=== PATIENT | male | born 1935 | race Caucasian/White ===

== ENCOUNTER → 2017-01-15 | Outpatient (CLI) | payer MEDICARE, BC ==
[2012-10-06 02:00] VITALS: BP 176/84
[~2017-01-15] MED LIST: CATAPRES PO; FLOMAX PO; ITRACONAZOLE100 MG PO; LEVAQUIN 5500 MG/TA1 PO; LEVITRA20 MG PO; LISINOPRIL AND1 TAB PO; OXYCONTIN 10MG10 MG PO; PREDNISONE10 M1 PO; PRILOSEC 20MG20 MG PO; RT SPIRIVA INH18 MCG IH; ST. JOSEPH81 M2 PO; ZESTRIL 20MG TA20 MG PO
== END ==
LOC: LAB 09:49
DX: I10 Essential (primary) hypertension (principal); Z12.5 Encounter for screening for malignant neoplasm of prostate; N40.0 Benign prostatic hyperplasia without lower urinary tract symptoms

== ENCOUNTER → 2017-06-19 | Outpatient (CLI) | payer MEDICARE, BC ==
[2012-10-06 02:00] VITALS: BP 176/84
== END ==
LOC: LAB 09:19
DX: R97.20 Elevated prostate specific antigen [PSA] (principal)

== ENCOUNTER → 2018-01-15 | Outpatient (CLI) | payer MEDICARE, BC ==
[2012-10-06 02:00] VITALS: BP 176/84
== END ==
LOC: LAB 13:47
DX: L03.90 Cellulitis, unspecified (principal); B99.9 Unspecified infectious disease; M79.674 Pain in right toe(s)

== ENCOUNTER → 2018-03-23 | Outpatient (CLI) | payer MEDICARE, BC ==
[~2018-03-23] VITALS: Ht 172.7 cm; Wt 67.7 kg
[~2018-03-23] MED LIST changes: +ADULT ASPIRIN81 MG PO; +FLOMAX0.4 MG PO
[2018-03-23 11:31] LABS: EOS # 0.2 (0.04-0.40); EOS % 2.3 % (0.0-4.0); HEMATOCRIT 44.7 % (42.0-52.0); HEMOGLOBIN 15.3 g/dL (13.5-18.0); LYMPH# 1.7 (1.50-4.00); MEAN CELL VOLUME 95 fl (78-100); MEAN CORPUSCULAR HEMOGLOBIN 33 pg (27-31); MEAN CORPUSCULAR HGB CONC 34 g/dL (33-37); MEAN PLATELET VOLUME 9.9 fl (7.4-10.4); MONO # 0.7 (0.20-0.80); NEU # 6.1 (1.40-6.50); PLATELET COUNT 227 K/mm3 (130-400); RED CELL DISTRIBUTION WIDTH 14.2 % (11.5-14.5); WHITE BLOOD COUNT 8.8 K/mm3 (4.8-10.8)
[2018-03-23 11:38] LABS: ALBUMIN 4.4 g/dL (3.5-5.0); CALCIUM 9.6 mg/dL (8.4-10.2); POTASSIUM 4.3 mmol/L (3.6-5.0); TOTAL BILIRUBIN 0.8 mg/dL (0.2-1.3); TOTAL PROTEIN 7.3 g/dL (6.3-8.2)
[2018-03-23 11:58] LABS: TROPONIN-I 0.08 ng/mL (0.00-0.06)
[2018-03-23 12:20] VITALS: BP 205/109
== END ==
LOC: AMSURD 11:14
PROVIDERS: Physician Assistant
DX: R91.8 Other nonspecific abnormal finding of lung field (principal); R07.9 Chest pain, unspecified; R06.01 Orthopnea; R06.00 Dyspnea, unspecified

== ENCOUNTER → 2018-06-15 | Outpatient (CLI) | payer MEDICARE, BC ==
[2018-03-23 12:20] VITALS: BP 205/109
== END ==
LOC: LAB 10:46
DX: Z12.5 Encounter for screening for malignant neoplasm of prostate (principal); I10 Essential (primary) hypertension; N40.0 Benign prostatic hyperplasia without lower urinary tract symptoms; R97.20 Elevated prostate specific antigen [PSA]

== ENCOUNTER → 2019-01-13 | Outpatient (CLI) | payer MEDICARE, BC ==
[2018-03-23 12:20] VITALS: BP 205/109
== END ==
LOC: LAB 14:52
PROVIDERS: Urology
DX: R97.20 Elevated prostate specific antigen [PSA] (principal)

== ENCOUNTER 2019-06-03 14:21 | Emergency (ER) | payer MEDICARE, BC ==
[~2019-06-03] VITALS: Ht 172.7 cm; Wt 65.9 kg
[2019-06-03 14:57] LABS: BASO # 0.1 (0.02-0.10); EOS # 0.1 (0.04-0.40); EOS % 1.4 % (0.0-4.0); HEMATOCRIT 40.8 % (42.0-52.0); HEMOGLOBIN 13.4 g/dL (13.5-18.0); LYMPH# 1.7 (1.50-4.00); MEAN CELL VOLUME 96 fl (78-100); MEAN CORPUSCULAR HEMOGLOBIN 32 pg (27-31); MEAN CORPUSCULAR HGB CONC 33 g/dL (33-37); MEAN PLATELET VOLUME 10.5 fl (7.4-10.4); MONO # 0.7 (0.20-0.80); NEU # 5.6 (1.40-6.50); PLATELET COUNT 89 K/mm3 (130-400); RED BLOOD COUNT 4.24 M/mm3 (4.20-5.60); RED CELL DISTRIBUTION WIDTH 14.1 % (11.5-14.5); WHITE BLOOD COUNT 8.1 K/mm3 (4.8-10.8)
[2019-06-03 15:10] LABS: ALBUMIN 3.9 g/dL (3.4-4.8); POTASSIUM 4.2 mmol/L (3.5-5.1); SODIUM 141 mmol/L (136-145)
[2019-06-03 15:11] LABS: CALCIUM 9.2 mg/dL (8.3-10.5)
[2019-06-03 15:12] LABS: GLUCOSE 121 mg/dL (75-110)
[2019-06-03 15:13] LABS: TOTAL PROTEIN 6.1 g/dL (6.2-8.1)
[2019-06-03 15:14] LABS: CARBON DIOXIDE 19 mmol/L (23-31); TOTAL BILIRUBIN 0.7 mg/dL (0.2-1.2)
[2019-06-03 15:18] LABS: AST-SGOT 14 U/L (5-34)
[2019-06-03 15:19] LABS: ALT/SGPT 15 U/L (0-55)
[2019-06-03 15:27] LABS: TROPONIN-I < 0.03 ng/mL (<0.030)
[2019-06-03] MEDS ORDERED: MUPIROCIN CALCIUM2% TP (15:58)
[2019-06-03 17:47] LABS: URINE APPEARANCE CLEAR; URINE BILIRUBIN NEGATIVE (NEGATIVE); URINE COLOR YELLOW; URINE GLUCOSE NEGATIVE (NEGATIVE); URINE KETONE NEGATIVE (NEGATIVE); URINE NITRATE NEGATIVE (NEGATIVE); URINE PROTEIN(semi-quant) 2+ mg/dL (NEGATIVE); URINE UROBILINOGEN NORMAL (NORMAL)
[2019-06-03 17:48] LABS: URINE BLOOD TRACE (NEGATIVE); URINE LEUKOCYTE ESTERASE TRACE (NEGATIVE); URINE MUCUS PRESENT (NOT PRESENT)
[2019-06-03 19:55] VITALS: BP 189/67
== END 2019-06-03 19:55 | disposition home or self-care (01) ==
LOC: ED 14:21
PROVIDERS: Nurse Practitioner Primary Care
DX: I44.2 Atrioventricular block, complete (principal); N40.0 Benign prostatic hyperplasia without lower urinary tract symptoms; Z79.82 Long term (current) use of aspirin; Z87.891 Personal history of nicotine dependence
CPT/HCPCS: J7030

== ENCOUNTER 2019-06-07 08:54 | Emergency (ER) | payer MEDICARE, BC ==
[~2019-06-07] VITALS: Ht 172.7 cm; Wt 71.0 kg
[~2019-06-07 08:54] MED LIST changes: +MUPIROCIN CALCIUM2% TP
[2019-06-07 09:53] LABS: EOS # 0.1 (0.04-0.40); EOS % 1.3 % (0.0-4.0); HEMATOCRIT 40.8 % (42.0-52.0); HEMOGLOBIN 13.6 g/dL (13.5-18.0); LYMPH# 1.4 (1.50-4.00); MEAN CELL VOLUME 96 fl (78-100); MEAN CORPUSCULAR HEMOGLOBIN 32 pg (27-31); MEAN CORPUSCULAR HGB CONC 33 g/dL (33-37); MEAN PLATELET VOLUME 11.1 fl (7.4-10.4); NEU # 8.2 (1.40-6.50); PLATELET COUNT 196 K/mm3 (130-400); RED BLOOD COUNT 4.25 M/mm3 (4.20-5.60); WHITE BLOOD COUNT 10.8 K/mm3 (4.8-10.8)
[2019-06-07 09:54] LABS: ALBUMIN 4.1 g/dL (3.4-4.8); POTASSIUM 4.4 mmol/L (3.5-5.1)
[2019-06-07 09:57] LABS: TOTAL PROTEIN 6.8 g/dL (6.2-8.1)
[2019-06-07 09:58] LABS: TOTAL BILIRUBIN 0.8 mg/dL (0.2-1.2)
[2019-06-07 10:09] LABS: TROPONIN-I 0.06 ng/mL (<0.030)
[2019-06-07 11:00] VITALS: BP 192/79
== END 2019-06-07 11:10 | disposition short-term general hospital (02) ==
LOC: ED 08:54
PROVIDERS: Nurse Practitioner Primary Care
DX: I50.9 Heart failure, unspecified (principal); I44.2 Atrioventricular block, complete; R79.89 Other specified abnormal findings of blood chemistry; F17.210 Nicotine dependence, cigarettes, uncomplicated; Z79.82 Long term (current) use of aspirin
CPT/HCPCS: J1940

== ENCOUNTER → 2019-06-15 | Outpatient (CLI) | payer MEDICARE, BC ==
[2019-06-07 11:00] VITALS: BP 192/79
== END ==
LOC: RAD 11:09
DX: J90 Pleural effusion, not elsewhere classified (principal); J18.8 Other pneumonia, unspecified organism; J44.9 Chronic obstructive pulmonary disease, unspecified; I11.0 Hypertensive heart disease with heart failure; I50.9 Heart failure, unspecified; N40.0 Benign prostatic hyperplasia without lower urinary tract symptoms; Z95.0 Presence of cardiac pacemaker

== ENCOUNTER → 2019-06-24 | Outpatient (CLI) | payer MEDICARE, BC ==
[2019-06-07 11:00] VITALS: BP 192/79
[2019-06-24 09:28] LABS: ALBUMIN 3.8 g/dL (3.4-4.8)
[2019-06-24 09:29] LABS: POTASSIUM 3.8 mmol/L (3.5-5.1)
[2019-06-24 09:30] LABS: CALCIUM 9.6 mg/dL (8.3-10.5)
[2019-06-24 09:31] LABS: TOTAL PROTEIN 6.3 g/dL (6.2-8.1)
[2019-06-24 09:33] LABS: TOTAL BILIRUBIN 0.5 mg/dL (0.2-1.2)
== END ==
LOC: RAD 09:00
PROVIDERS: Physician Assistant
DX: J44.9 Chronic obstructive pulmonary disease, unspecified (principal); I11.0 Hypertensive heart disease with heart failure; I50.9 Heart failure, unspecified; N40.0 Benign prostatic hyperplasia without lower urinary tract symptoms; Z95.0 Presence of cardiac pacemaker

== ENCOUNTER → 2019-07-07 | Outpatient (CLI) | payer MEDICARE, BC ==
[2019-06-07 11:00] VITALS: BP 192/79
[2019-07-07 10:31] LABS: POTASSIUM 4.1 mmol/L (3.5-5.1)
[2019-07-07 10:32] LABS: CALCIUM 8.9 mg/dL (8.3-10.5)
== END ==
LOC: LAB 09:32
PROVIDERS: Physician Assistant
DX: I11.0 Hypertensive heart disease with heart failure (principal); I50.9 Heart failure, unspecified; N28.9 Disorder of kidney and ureter, unspecified; R60.0 Localized edema; Z95.0 Presence of cardiac pacemaker

== ENCOUNTER → 2019-11-18 | Outpatient (CLI) | payer MEDICARE, BC | LOC: LAB 08:29 | DX: Z01.818 Encounter for other preprocedural examination (principal); Z20.828 Contact with and (suspected) exposure to other viral communicable diseases ==

== ENCOUNTER → 2019-11-23 | Day surgery (SDC) | payer MEDICARE, BC | LOC: MSO 09:12 | DX: H25.812 Combined forms of age-related cataract, left eye (principal); J43.9 Emphysema, unspecified; K21.9 Gastro-esophageal reflux disease without esophagitis; C61 Malignant neoplasm of prostate; C67.9 Malignant neoplasm of bladder, unspecified; R26.81 Unsteadiness on feet; K86.2 Cyst of pancreas; H91.90 Unspecified hearing loss, unspecified ear; Z95.0 Presence of cardiac pacemaker; Z90.49 Acquired absence of other specified parts of digestive tract; Z79.82 Long term (current) use of aspirin; Z79.899 Other long term (current) drug therapy; Z88.0 Allergy status to penicillin; Z91.040 Latex allergy status; I10 Essential (primary) hypertension | CPT/HCPCS: 00142; J0171; J2250; V2632 ==

== ENCOUNTER → 2019-12-21 | Day surgery (SDC) | payer MEDICARE, BC | LOC: MSO 07:43 | DX: H25.811 Combined forms of age-related cataract, right eye (principal); Z85.51 Personal history of malignant neoplasm of bladder; Z85.46 Personal history of malignant neoplasm of prostate; J43.9 Emphysema, unspecified; I10 Essential (primary) hypertension; K21.9 Gastro-esophageal reflux disease without esophagitis; Z90.49 Acquired absence of other specified parts of digestive tract; Z90.79 Acquired absence of other genital organ(s); Z79.82 Long term (current) use of aspirin; Z88.8 Allergy status to other drugs, medicaments and biological substances; Z91.040 Latex allergy status; Z95.0 Presence of cardiac pacemaker; Z87.891 Personal history of nicotine dependence | CPT/HCPCS: 00142; J0171; J2704; V2632 ==